=== PATIENT | female | born 1995 | race Caucasian/White ===

== ENCOUNTER 2017-09-15 08:50 | Emergency (ER) | payer OTHER ==
--- NOTE | 2017-09-15 10:44 | RAD ---
HISTORY: Chest pain COMPARISONS: None VIEWS: 1: frontal portable view of the chest at 10:30 AM FINDINGS: LINES AND TUBES: None. CARDIOMEDIASTINAL SILHOUETTE: The cardiomediastinal silhouette is normal for portable technique. PLEURA: There is a small left apical pneumothorax. LUNG PARENCHYMA: The lungs are clear. ABDOMEN: The upper abdomen is clear. There is no subphrenic gas. BONES AND SOFT TISSUES: No bone or soft tissue abnormalities are noted. IMPRESSION: SMALL LEFT APICAL PNEUMOTHORAX. PRELIMINARY FINDINGS WERE DISCUSSED WITH DR. WETZEL AT APPROXIMATELY 10:41 AM ON SEPTEMBER 15, 2017.
[2017-09-15 10:49] LABS: ABS Basophils 0 10^3/ul (0-0.2); ABS Eosinophils 0 10^3/ul (0-0.6); ABS Lymphocytes 1.2 10^3/ul (1.0-4.8); ABS Monocytes 0.4 10^3/ul (0-0.8); ABS Neutrophils 5.8 10^3/ul (1.5-7.7); ABS Nucleated RBC 0 10^3/ul; Eosinophil % 0.3 % (0-6); Hematocrit 41 % (35-47); Hemoglobin 13.7 g/dl (12.0-16.0); Mean Corpuscular HGB Conc 34 g/dl (31-36); Mean Corpuscular Hemoglobin 31 pg (27-31); Mean Corpuscular Volume 93 fL (80-97); Mean Platelet Volume 7 um3 (7.4-10.4); Nucleated Red Blood Cells % 0; Platelet Count 285 10^3/ul (150-450); Red Blood Count 4.36 10^6/ul (4.0-5.4); Red Cell Distribution Width 13 % (10.5-15); White Blood Count 7.4 10^3/ul (3.5-10.8)
[2017-09-15 11:07] LABS: EGFR Non-African American 116.2 (>60)
--- NOTE | 2017-09-15 13:57 | RAD ---
HISTORY: Chest pain COMPARISONS: September 15, 2017 at 10:29 AM VIEWS: 4: Frontal dual-energy and lateral views of the chest. FINDINGS: CARDIOMEDIASTINAL SILHOUETTE: The cardiomediastinal silhouette is normal. DAYRON: The dayron are normal. PLEURA: There is stable small left apical pneumothorax. LUNG PARENCHYMA: The lungs are clear. ABDOMEN: The upper abdomen is clear. There is no subphrenic gas. BONES AND SOFT TISSUES: No bone or soft tissue abnormalities are noted. OTHER: None. IMPRESSION: STABLE LEFT APICAL PNEUMOTHORAX
[2017-09-15 14:44] VITALS: BP 108/63
--- NOTE | 2017-09-15 18:27 | ED ---
Freddie Aggarwal Angela, scribed for Teja Martin MD on 09/15/17 at 0912 . Back Pain - HPI Summary HPI Summary: This pt is a 22 y/o female presenting to [facility] c/o back and chest pain x3 days. Pt reports her pain makes it difficult to breathe. She states this morning she felt like she was about to pass out. Pt describes her chest pain as constant, burning and tight. Pt states her pain is worse with lying on the left side and with moving her arms. She denies fever, chills, cough, palpitations, nausea. Pt denies any PMHx. - History of Current Complaint Chief Complaint: EDBackInjuryPain Stated Complaint: BACK/CHEST PAIN,DIFF BREATHING Time Seen by Provider: 09/15/17 09:03 Hx Obtained From: Patient Onset/Duration: Lasting Days, Still Present Onset/Duration: Started Days Ago, Still Present Timing: Lasting Days Back Pain Location: Is Discrete @ - back and chest Severity Currently: Moderate Pain Intensity: 4 Pain Scale Used: 0-10 Numeric Character: Burning - and tight Aggravating Symptom(s): Movement, Other - lying on left side Alleviating Symptom(s): Nothing Associated Signs And Symptoms: Negative: Fever, Bladder Incontinence, Bowel Incontinence, Other - POS: faint, difficulty breahting. NEG: chills, cough, palpitations, nausea - Allergies/Home Medications Allergies/Adverse Reactions: Allergies Allergy/AdvReac Type Severity Reaction Status Date / Time No Known Allergies Allergy Verified 09/15/17 09:00 Home Medications: Home Medications Norgestimate-Ethinyl Estradiol [Tri-Linyah] 1 tab PO DAILY 09/15/17 [History Confirmed 09/15/17] PMH/Surg Hx/FS Hx/Imm Hx Endocrine/Hematology History: Denies: Hx Diabetes Cardiovascular History: Denies: Hx Hypertension Infectious Disease History: No Infectious Disease History: Denies: Traveled Outside the [place] in Last 30 Days - Family History Known Family History: Negative: Cardiac Disease, Hypertension, Diabetes - Social History Alcohol Use: Occasionally Alcohol Amount: ETOH intoxication this date Substance Use Type: Reports: None Substance Use Comment - Amount & Last Used: pt denies Smoking Status (MU): Never Smoked Tobacco Review of Systems Negative: Fever, Chills Positive: Chest Pain. Negative: Palpitations Negative: Cough Negative: Nausea Musculoskeletal: Other - back pain Neurological: Other - POS: faint All Other Systems Reviewed And Are Negative: Yes Physical Exam - Summary Physical Exam Summary: VITAL SIGNS: Reviewed. GENERAL: Patient is a well-developed and nourished female who is lying comfortable in the stretcher. Patient is not in any acute respiratory distress. HEAD AND FACE: No signs of trauma. No ecchymosis, hematomas or skull depressions. No sinus tenderness. EYES: PERRLA, EOMI x 2, No injected conjunctiva, no nystagmus. EARS: Hearing grossly intact. Ear canals and tympanic membranes are within normal limits. MOUTH: Oropharynx within normal limits. NECK: Supple, trachea is midline, no adenopathy, no JVD, no carotid bruit, no c- spine tenderness, neck with full ROM. CHEST: Symmetric, no tenderness at palpation LUNGS: Clear to auscultation bilaterally. No wheezing or crackles. CVS: Regular rate and rhythm, S1 and S2 present, no murmurs or gallops appreciated. ABDOMEN: Soft, non-tender. No signs of distention. No rebound no guarding, and no masses palpated. Bowel sounds are normal. EXTREMITIES: FROM in all major joints, no edema, no cyanosis or clubbing. Some tenderness in the paraspinal muscles of the upper back. NEURO: Alert and oriented x 3. No acute neurological deficits. Speech is normal and follows commands. SKIN: Dry and warm Triage Information Reviewed: Yes Vital Signs On Initial Exam: Initial Vitals Temp Pulse Resp BP Pulse Ox 98.2 F 90 16 116/71 99 09/15/17 08:56 09/15/17 08:56 09/15/17 08:56 09/15/17 08:56 09/15/17 08:56 Vital Signs Reviewed: Yes Diagnostics - Vital Signs Vital Signs Temp Pulse Resp BP Pulse Ox 09/15/17 08:56 98.2 F 90 16 116/71 99 - Laboratory Lab Results: Lab Results 09/15/17 09/15/17 Range/Units 10:30 10:30 WBC 7.4 (3.5-10.8) 10^3/ul RBC 4.36 (4.0-5.4) 10^6/ul Hgb 13.7 (12.0-16.0) g/dl Hct 41 (35-47) % MCV 93 (80-97) fL MCH 31 (27-31) pg MCHC 34 (31-36) g/dl RDW 13 (10.5-15) % Plt Count 285 (150-450) 10^3/ul MPV 7 L (7.4-10.4) um3 Neut % (Auto) 78.2 (38-83) % Lymph % (Auto) 16.0 L (25-47) % [place] % (Auto) 5.1 (1-9) % Eos % (Auto) 0.3 (0-6) % Baso % (Auto) 0.4 (0-2) % Absolute Neuts (auto) 5.8 (1.5-7.7) 10^3/ul Absolute Lymphs (auto) 1.2 (1.0-4.8) 10^3/ul Absolute Monos (auto) 0.4 (0-0.8) 10^3/ul Absolute Eos (auto) 0 (0-0.6) 10^3/ul Absolute Basos (auto) 0 (0-0.2) 10^3/ul Absolute Nucleated RBC 0 10^3/ul Nucleated RBC % 0 Sodium 135 (133-145) mmol/L Potassium 4.0 (3.5-5.0) mmol/L Chloride 103 (101-111) mmol/L Carbon Dioxide 26 (22-32) mmol/L Anion Gap 6 (2-11) mmol/L BUN 18 (6-24) mg/dL Creatinine 0.65 (0.51-0.95) mg/dL Est GFR ( Amer) 149.4 (>60) Est GFR (Non-Af Amer) 116.2 (>60) BUN/Creatinine Ratio 27.7 H (8-20) Glucose 76 (70-100) mg/dL Calcium 9.4 (8.6-10.3) mg/dL Total Bilirubin 0.50 (0.2-1.0) mg/dL AST 19 (13-39) U/L ALT 13 (7-52) U/L Alkaline Phosphatase 47 (34-104) U/L Total Creatine Kinase 34 (10-223) U/L Troponin I 0.00 (<0.04) ng/mL C-Reactive Protein 3.82 (< 5.00) mg/L Total Protein 6.9 (6.4-8.9) g/dL Albumin 3.8 (3.2-5.2) g/dL Globulin 3.1 (2-4) g/dL Albumin/Globulin Ratio 1.2 (1-3) Beta HCG, Quant < 0.60 mIU/mL Result Diagrams: 09/15/17 10:30 09/15/17 10:30 Lab Statement: Any lab studies that have been ordered have been reviewed, and results considered in the medical decision making process. - Radiology Chest XR Xray Interpretation: Positive (See Comments) - IMPRESSION: Small left apical pneumothorax. Preliminary findings were discussed with Dr. Martin at approximately 10:41 AM on September 15, 2017. Dr. Martin has reviewed this radiology report. Radiology Interpretation Completed By: Radiologist Repeat chest XR Xray Interpretation: No Acute Changes - IMPRESSION: Stable left apical pneumothorax. Dr. Martin has reviewed this radiology report. Radiology Interpretation Completed By: Radiologist - EKG 10:25 Cardiac Rate: NL EKG Rhythm: Sinus Rhythm - at 82 bpm EKG Interpretation: No ST elevation. Normal axis. Re-Evaluation - Re-Evaluation First Eval Re-Evaluation Time: 11:12 Comment: I reviewed the chest XR with the pt and Dr. Nance's recommendations. Back Pain Course/Dx - Course Assessment/Plan: This pt is a 22 y/o female presenting to [facility] c/o back and chest pain x3 days. Pt reports her pain makes it difficult to breathe. She states this morning she felt like she was about to pass out. Pt describes her chest pain as constant, burning and tight. Pt states her pain is worse with lying on the left side and with moving her arms. She denies fever, chills, cough , palpitations, nausea. Pt denies any PMHx. Test results without any significant abnormalities. Chest XR shows that she has small left apical pneumothorax. I discussed the pts case with Dr. Nance, surgeon, who recommends to wait for 4 hours and repeat the chest XR. Second CXR is unchanged from initial XR. Dr. Nance recommends for pt to be discharged home and follow up in his office in 2 days. She is saturating 98% on room air and has no other complaints. Pt is hemodynamically stable, alert and oriented x3. - Diagnoses Differential Diagnosis/HQI/PQRI: Positive: Other - CP, Pneumonia, Flue, ACS Provider Diagnoses: Pneumothorax - Provider Notifications Discussed Care Of Patient With: Indio Nance Time Discussed With Above Provider: 11:09 Instructed by Provider To: Other - I discussed pt care with Dr. Nance, surgeon, who reports to repeat the chest XR in 3-4 hours. Discharge - Discharge Plan Condition: Stable Disposition: HOME Patient Education Materials: Spontaneous Pneumothorax (ED) Referrals: Indio Nance MD [Medical Doctor] - 2 Days (Follow up with Dr. Nance on 09/17/17.) [facility] [Primary Care Provider] - Additional Instructions: Please follow up with Dr. Nance, surgeon, on 09/17/17. RETURN TO THE ED FOR ANY WORSENING SYMPTOMS. The documentation as recorded by the Freddie marcano Angela accurately reflects the service I personally performed and the decisions made by Mario dozier Walter, MD.
== END 2017-09-15 14:58 | disposition home or self-care (01) ==
LOC: ED 08:50
DX: J93.9 Pneumothorax, unspecified (principal); R07.9 Chest pain, unspecified
CPT/HCPCS: 36415; 71045; 71046; 80053; 82550; 84484; 84702; 85025; 86140; 93005; 99282

== ENCOUNTER → 2017-09-27 08:56 | Emergency (ER) | payer OTHER ==
--- NOTE | 2017-09-27 09:43 | RAD ---
Indication: Chest pain, shortness of breath. 2 views of the chest including dual energy PA views demonstrates no mediastinal shift. Heart is of normal size and configuration. Lung phelps are clear. IMPRESSION: No active cardiopulmonary disease is noted.
[2017-09-27 10:07] LABS: EGFR Non-African American 110.3 (>60)
[2017-09-27 10:08] LABS: ABS Basophils 0 10^3/ul (0-0.2); ABS Eosinophils 0.1 10^3/ul (0-0.6); ABS Lymphocytes 1.5 10^3/ul (1.0-4.8); ABS Monocytes 0.4 10^3/ul (0-0.8); ABS Neutrophils 4.4 10^3/ul (1.5-7.7); ABS Nucleated RBC 0 10^3/ul; Eosinophil % 1.4 % (0-6); Hematocrit 43 % (35-47); Hemoglobin 14.2 g/dl (12.0-16.0); Lymphocyte % 23.6 % (25-47); Mean Corpuscular HGB Conc 33 g/dl (31-36); Mean Corpuscular Hemoglobin 31 pg (27-31); Mean Corpuscular Volume 94 fL (80-97); Nucleated Red Blood Cells % 0.1; Red Blood Count 4.62 10^6/ul (4.0-5.4); Red Cell Distribution Width 13 % (10.5-15); White Blood Count 6.4 10^3/ul (3.5-10.8)
[2017-09-27 12:57] VITALS: BP 99/56
--- NOTE | 2017-09-27 19:26 | CONS ---
CC: [facility]; [facility] * EMERGENCY ROOM CONSULTATION REPORT: DATE OF CONSULT: 09/27/17 REFERRING PROVIDER: Dr. Martin, emergency room. REASON FOR CONSULT: Spontaneous left pneumothorax. HISTORY OF PRESENT ILLNESS: Ms. 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 It was associated with some mild shortness of breath. She has a recent history of presenting to the emergency room at [facility] on 09/15/17 with similar symptoms and a chest x-ray showed apical pneumothorax that did not changer fixer 4 to 5 hours' time and she was discharged to home with appropriate followup. She states that she was doing better and was home at her parents near [place], [place], and had an x-ray done at [facility], which she was told was unremarkable. We do not have these records or the images today. She had been doing well after that and presented today with the above symptoms. Here in the emergency room today, she was noted to have stable vital signs with 100% oxygen saturation and no shortness of breath at rest. Chest x-ray was performed once again, which showed a 20% left-sided pneumothorax, slightly larger than the study done here on 09/15/17. Surgical consultation was obtained. PAST MEDICAL HISTORY: Left pneumothorax as per above. This is her first episode. Not had problems prior to her most recent visit. PAST SURGICAL HISTORY: None. MEDICATIONS: Include none. ALLERGIES: She has no known drug allergies. 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 She drinks alcohol on a rare social basis. Does not use tobacco. She is from [place], [place]. REVIEW OF SYSTEMS: Cerebrovascular: No dizziness or visual disturbances. Cardiovascular: No chest pain or coronary artery disease. Pulmonary: She has not had fevers, chills, cough, or nausea. Otherwise as per above. PHYSICAL EXAM: Temperature 97.2, pulse 79, blood pressure 104/95, oxygen saturation is 97% on room air. In general, she is a slender female and appears to be in no apparent distress, quite alert, conversive, and very pleasant. Trachea was midline. There is no crepitus on the anterior, posterior chest wall. Heart has regular rate and rhythm without murmurs, rubs, or gallops. Her lungs are clear to auscultation. There are breath sounds that are equal on both sides. I do not appreciate a significant decrease in breath sounds on the left either anterior or posteriorly. Abdomen was soft, nondistended, no tenderness. Extremities showed no cyanosis or edema. Psychiatric: She is awake, alert, and oriented x3. She has normal judgment and insight. IMPRESSION AND PLAN: Spontaneous left pneumothorax. This apparently has been a process that has been going on for almost 2 weeks and it appears that she has a recurrence of the left pneumothorax by x-ray and clinically. The pneumothorax is relatively small that extends down the left side of the chest wall; however, slightly increased in size from the study done 2 weeks ago. The question here is whether to place the pneumothorax catheter. I will continue to observe with hopeful resolution. It is difficult to determine the duration of the present pneumothorax and it is hard to make a decision without seeing the films from [place], which may have also been very difficult to read a pneumothorax, may have been missed; however, she clinically was feeling better as of this past Wednesday. I discussed her care with Dr. Sullivan, Thoracic Surgery, here. The plan right now is to observe and we are going to follow up with a chest x-ray tomorrow morning with followup with Dr. Sullivan in the office tomorrow morning. If this has increased in size or she is having more symptoms, this will warrant a pneumothorax catheter and/or chest tube insertion. If this causes increasing symptoms in the next 12 to 24 hours, she has been recommended that she present to the emergency room urgently for further evaluation and probable tube placement. [id number]/[facility] #: [id number] MTDD
--- NOTE | 2017-09-29 08:30 | ED ---
Freddie Aggarwal Angela, scribed for Teja Martin MD on 09/27/17 at 0940 . Back Pain - HPI Summary HPI Summary: This pt is a 22 y/o female presenting to [facility] c/o back pain and left sided chest pain. She additionally notes SOB and pain with deep inspirations. Pt had a recent pneumothorax on 09/15/17. Pt followed up 3 days ago with a surgeon at her hometown and was told her pneumothorax had resolved. She notes today she also felt dizziness. Pt denies nausea and vomiting. LMP: last week. - History of Current Complaint Chief Complaint: EDChestWallPain Stated Complaint: SHORT OF BREATH Time Seen by Provider: 09/27/17 09:01 Hx Obtained From: Patient Onset/Duration: Lasting Days, Still Present Onset/Duration: Started Days Ago Timing: Lasting Days Severity Currently: Moderate Pain Intensity: 4 Pain Scale Used: 0-10 Numeric Aggravating Symptom(s): Nothing Alleviating Symptom(s): Nothing Associated Signs And Symptoms: Positive: Other - POS: chest pain, SOB, dizziness. NEG: nausea, vomiting. - Allergies/Home Medications Allergies/Adverse Reactions: Allergies Allergy/AdvReac Type Severity Reaction Status Date / Time No Known Allergies Allergy Verified 09/15/17 09:00 PMH/Surg Hx/FS Hx/Imm Hx Endocrine/Hematology History: Denies: Hx Diabetes Cardiovascular History: Denies: Hx Hypertension Respiratory History: Reports: Other Respiratory Problems/Disorders - pneumothorax Infectious Disease History: No Infectious Disease History: Denies: Traveled Outside the [place] in Last 30 Days - Family History Known Family History: Negative: Cardiac Disease, Hypertension, Diabetes - Social History Alcohol Use: Occasionally Alcohol Amount: ETOH intoxication this date Substance Use Type: Reports: None Substance Use Comment - Amount & Last Used: pt denies Smoking Status (MU): Never Smoked Tobacco Review of Systems Negative: Fever, Chills Positive: Chest Pain Positive: Shortness Of Breath Negative: Vomiting, Nausea Musculoskeletal: Other - back pain Neurological: Other - POS: dizziness All Other Systems Reviewed And Are Negative: Yes Physical Exam - Summary Physical Exam Summary: VITAL SIGNS: Reviewed. GENERAL: Patient is a well-developed and nourished female who is lying comfortable in the stretcher. Patient is not in any acute respiratory distress. HEAD AND FACE: No signs of trauma. No ecchymosis, hematomas or skull depressions. No sinus tenderness. EYES: PERRLA, EOMI x 2, No injected conjunctiva, no nystagmus. EARS: Hearing grossly intact. Ear canals and tympanic membranes are within normal limits. MOUTH: Oropharynx within normal limits. NECK: Supple, trachea is midline, no adenopathy, no JVD, no carotid bruit, no c- spine tenderness, neck with full ROM. CHEST: Symmetric, no tenderness at palpation LUNGS: Clear to auscultation bilaterally. No wheezing or crackles. CVS: Regular rate and rhythm, S1 and S2 present, no murmurs or gallops appreciated. ABDOMEN: Soft, non-tender. No signs of distention. No rebound no guarding, and no masses palpated. Bowel sounds are normal. EXTREMITIES: FROM in all major joints, no edema, no cyanosis or clubbing. NEURO: Alert and oriented x 3. No acute neurological deficits. Speech is normal and follows commands. SKIN: Dry and warm Triage Information Reviewed: Yes Vital Signs On Initial Exam: Initial Vitals Temp Pulse Resp BP Pulse Ox 97.2 F 73 18 119/64 98 09/27/17 08:58 09/27/17 08:58 09/27/17 08:58 09/27/17 08:58 09/27/17 08:58 Vital Signs Reviewed: Yes Diagnostics - Vital Signs Vital Signs Temp Pulse Resp BP Pulse Ox 09/27/17 09:12 87 94 09/27/17 09:11 104/65 100 09/27/17 08:58 97.2 F 73 18 119/64 98 - Laboratory Result Diagrams: 09/27/17 09:16 09/27/17 09:16 Lab Statement: Any lab studies that have been ordered have been reviewed, and results considered in the medical decision making process. - Radiology Chest XR Xray Interpretation: Positive (See Comments) - IMPRESSION: There is approximately 20% pneumothorax of the left lung. Dr. Martin has reviewed this radiology report. Radiology Interpretation Completed By: Radiologist - EKG 09:25 Cardiac Rate: NL EKG Rhythm: Sinus Rhythm - at 71 bpm EKG Interpretation: No ST elevation. Back Pain Course/Dx - Course Assessment/Plan: This pt is a 22 y/o female presenting to [facility] c/o back pain and left sided chest pain. She additionally notes SOB. Pt had a recent pneumothorax on 09/15/17. Pt followed up 3 days ago with a surgeon at her hometown and was told her pneumothorax had resolved. She additionally notes today she felt dizziness. Pt denies nausea and vomiting. LMP: last week. Test results without any significant abnormalities. I discussed the case with Dr. Martinez, surgeon, who came and assessed the pt in the ED. After his assessment , he recommends to discharge the pt home and follow up with Dr. Sullivan at 11:45 at his office tomorrow. Pt is hemodynamically stable, alert and oriented x3. She understands and agrees. - Diagnoses Provider Diagnoses: Spontaneous pneumothorax - Provider Notifications Discussed Care Of Patient With: Jono Martinez Time Discussed With Above Provider: 10:07 Instructed by Provider To: Other - I discussed pt care with Dr. Martinez, surgeon, who will come see the pt in the ED. Discharge - Discharge Plan Condition: Stable Disposition: HOME Patient Education Materials: Spontaneous Pneumothorax (ED) Referrals: Dilan Sullivan MD [Medical Doctor] - (tomorrow, Wednesday (09/28/17), at 11:45 AM) [facility] [Primary Care Provider] - Additional Instructions: Please follow up with Dr. Sullivan, surgeon, tomorrow at 11:45 AM. RETURN TO THE ED FOR ANY WORSENING SYMPTOMS. The documentation as recorded by the Freddie marcano Angela accurately reflects the service I personally performed and the decisions made by me, Teja Martin MD.
== END | disposition home or self-care (01) ==
LOC: ED 08:56
DX: J93.83 Other pneumothorax (principal)
CPT/HCPCS: 36415; 71046; 80053; 82550; 85025; 93005; 99282

== ENCOUNTER → 2017-09-28 13:03 | Day surgery (SDC) | payer OTHER ==
[~2017-09-28 13:03] MED LIST: Ibuprofen TAB* 600 MG ONE; Ibuprofen TAB* 600 MG PO ONE
--- NOTE | 2017-09-28 14:19 | RAD ---
INDICATION: Chest tube placement following spontaneous pneumothorax COMPARISON: Most recent comparison chest x-rays from the same date acquired at 1120 hours TECHNIQUE: Single AP portable view of the chest was obtained on September 28, 2017 at 1350 hours. FINDINGS: Image quality is compromised due to the relative inferiority of a portable chest x-ray. There is been interval placement of an 8-Telugu left upper chest percutaneous chest tube. The pneumothorax seen on the previous chest x-ray has resolved. The heart and lungs are otherwise normal in appearance. IMPRESSION: Interval resolution of left-sided pneumothorax after 8-Telugu chest tube placement.
--- NOTE | 2017-09-29 11:24 | OP ---
CC: [facility] * DATE OF OPERATION: 09/28/17 - SDS DATE OF : 97 SURGEON: Dilan Sullivan MD SEXER: None. ANESTHESIOLOGIST: None. PRE-OP DIAGNOSIS: Left pneumothorax. POST-OP DIAGNOSIS: Left pneumothorax. OPERATIVE PROCEDURE: Placement of left Heimlich valve. DESCRIPTION OF PROCEDURE: The patient was supine on the procedure room. The left anterior chest was prepped with antiseptic, draped in a sterile fashion. Local infiltrative anesthesia was administered. The second interspace was addressed and skinny needle was used to identify air aspirate. Therefore, the pneumothorax catheter was then placed through a small verona in the skin and again air aspiration was carried out. The catheter was advanced without difficulty. A 60 cc syringe was used to aspirate air from the chest cavity until no more was forthcoming. There is approximately 250 mL of air aspirated. Catheter was sutured at the skin, attached to the Heimlich valve, and it was secured with a dressing. Follow up chest x-ray was obtained, it shows complete resolution of the pneumothorax. She tolerated this well. She was discharged with instructions and we will see her back in the office for followup in a couple of days. [id number]/[facility] #: [id number] [facility] HOSPITALPriscila
== END | disposition home or self-care (01) ==
LOC: OR 13:03
PROVIDERS: ATTEND Surgery
DX: J93.11 Primary spontaneous pneumothorax (principal)
CPT/HCPCS: 71045; A9270-GY

== ENCOUNTER 2018-02-06 21:36 | Emergency (ER) | payer OTHER ==
[2018-02-06] MEDS ORDERED: Ketorolac INJ* 30 MG/ML 1 ML VIAL IV PUSH ONE (22:18)
[2018-02-06 23:24] VITALS: BP 120/79
--- NOTE | 2018-02-06 23:28 | ED ---
Patricia Aggarwal Emily, scribed for Tri Donald MD on 02/06/18 at 2200 . Back Pain - HPI Summary HPI Summary: This patient is a 22 year old F presenting to [facility] with a chief complaint of upper back pain that began earlier today. The patient rates the pain 0/10 in severity. Symptoms aggravated by deep breaths. Symptoms alleviated by nothing. Patient denies SOB. Pt reports a history of two left pneumothorax, with the most recent one occurring approximately 3 months ago. - History of Current Complaint Chief Complaint: EDGeneral Stated Complaint: BACK PAIN Time Seen by Provider: 02/06/18 21:45 Hx Obtained From: Patient Onset/Duration: Sudden Onset, Lasting Hours, Still Present Onset/Duration: Started Hours Ago, Atraumatic, Still Present Timing: Constant Severity Initially: Mild Severity Currently: Mild Pain Intensity: 0 Pain Scale Used: 0-10 Numeric Aggravating Symptom(s): Cough, Other - Deep breaths Alleviating Symptom(s): Nothing Associated Signs And Symptoms: Positive: Other - Negative SOB - Allergies/Home Medications Allergies/Adverse Reactions: Allergies Allergy/AdvReac Type Severity Reaction Status Date / Time No Known Allergies Allergy Verified 02/06/18 22:08 PMH/Surg Hx/FS Hx/Imm Hx Previously Healthy: No Endocrine/Hematology History: Denies: Hx Diabetes Cardiovascular History: Denies: Hx Hypertension Respiratory History: Reports: Other Respiratory Problems/Disorders - Hx pneumothorax Opthamlomology History: Denies: Hx Legally Blind EENT History: Denies: Hx Deafness - Surgical History Surgery Procedure, Year, and Place: Denies previous surgery Hx Anesthesia Reactions: No Infectious Disease History: No Infectious Disease History: Denies: Traveled Outside the [place] in Last 30 Days - Family History Known Family History: Negative: Cardiac Disease, Hypertension, Diabetes - Social History Occupation: Student Lives: Dormitory/Roommates Alcohol Use: Occasionally Hx Substance Use: No Substance Use Type: Reports: None Hx Tobacco Use: No Smoking Status (MU): Never Smoked Tobacco Review of Systems Negative: Shortness Of Breath Positive: Other - Positive back pain All Other Systems Reviewed And Are Negative: Yes Physical Exam - Summary Physical Exam Summary: VITAL SIGNS: Reviewed. GENERAL: Patient is a well-developed and nourished female who is lying comfortable in the stretcher. Patient is not in any acute respiratory distress. HEAD AND FACE: No signs of trauma. No ecchymosis, hematomas or skull depressions. No sinus tenderness. EYES: PERRLA, EOMI x 2, No injected conjunctiva, no nystagmus. EARS: Hearing grossly intact. Ear canals and tympanic membranes are within normal limits. MOUTH: Oropharynx within normal limits. NECK: Supple, trachea is midline, no adenopathy, no JVD, no carotid bruit, no c- spine tenderness, neck with full ROM. CHEST: Symmetric, no tenderness at palpation LUNGS: Decreased breath sounds on the left side. No wheezing or crackles. CVS: Regular rate and rhythm, S1 and S2 present, no murmurs or gallops appreciated. ABDOMEN: Soft, non-tender. No signs of distention. No rebound no guarding, and no masses palpated. Bowel sounds are normal. EXTREMITIES: FROM in all major joints, no edema, no cyanosis or clubbing. NEURO: Alert and oriented x 3. No acute neurological deficits. Speech is normal and follows commands. SKIN: Dry and warm Triage Information Reviewed: Yes Vital Signs On Initial Exam: Initial Vitals Temp Pulse Resp BP Pulse Ox 98.1 F 97 16 121/94 100 02/06/18 21:39 02/06/18 21:39 02/06/18 21:39 02/06/18 21:39 02/06/18 21:39 Vital Signs Reviewed: Yes Diagnostics - Vital Signs Vital Signs Temp Pulse Resp BP Pulse Ox 02/06/18 21:39 98.1 F 97 16 121/94 100 - Laboratory Lab Statement: Any lab studies that have been ordered have been reviewed, and results considered in the medical decision making process. - Radiology CXR Radiology Interpretation Completed By: ED Physician - CXR reveals, per ED physician, left pneumothorax 2.7 cm from the rib cage. Back Pain Course/Dx - Course Course Of Treatment: This patient is a 22 year old F presenting to [facility] with a chief complaint of upper back pain that began earlier today. CXR reveals, per ED physician, left pneumothorax 2.7 cm from the rib cage. In the ED course, the patient recieved Toradol. Consult with Dr. Sullivan (surgery) at 1760. Dr. Sullivan recommends that the patient be discharged and return tomorrow for a repeat CXR. Dr. Sullivan gave the patient a prescription for the CXR and will follow up with the patient. The patient will be discharged with repeat CXR tomorrow. The patient is agreeable with this plan. - Diagnoses Provider Diagnoses: Pneumothorax, left - Provider Notifications Discussed Care Of Patient With: Dilan Sullivan Time Discussed With Above Provider: 22:51 Instructed by Provider To: Other - Consult with Dr. Sullivan (surgery) at 2251. Dr. Sullivan recommends that the patient be discharged and return tomorrow for a repeat CXR. Discharge - Sign-Out/Discharge Documenting (check all that apply): Discharge/Admit/Transfer - Discharge home - Discharge Plan Condition: Stable Disposition: HOME Patient Education Materials: Spontaneous Pneumothorax (ED) Referrals: [facility] [Outside] - 2 Days Additional Instructions: RETURN TO THE EMERGENCY DEPARTMENT FOR NEW OR WORSENING SYMPTOMS - Billing Disposition and Condition Condition: STABLE Disposition: Home The documentation as recorded by the Patricia marcano Emily accurately reflects the service I personally performed and the decisions made by , Tri Donald MD.
--- NOTE | 2018-02-07 01:02 | CONS ---
CONSULTATION REPORT: DATE OF CONSULT: 02/06/18 - EMERGENCY DEPT CHIEF COMPLAINT: Left chest pressure and pain. HISTORY OF PRESENT ILLNESS: The patient is a 22-year-old female, known to me from previous left pneumothorax and Heimlich valve, who now presents with about 12-hour history of pain in the left chest and pressure and a little bit of dyspnea. She presents to the emergency room as she was just sitting around, studying at the time when this happened. PHYSICAL EXAM: On examination, she does not appear in acute distress. Skin is warm and well perfused. Breathing is easy and unlabored. Vital signs show normal heart rate, respirations 16 and unlabored, O2 saturation between 96% and 100% on room air. There is no obvious decrease in breath sounds to auscultation. There is no crepitus. DIAGNOSTIC STUDIES/LAB DATA: Review of her chest x-ray reveals a pneumothorax with about 23 mm of separation at the top. IMPRESSION AND PLAN: A 22-year-old female with recurrent left pneumothorax and mild symptoms. I have recommended a pneumothorax catheter with a Heimlich valve to alleviate her pneumothorax. She does not want to do this and would rather try to ride it out without a tube. She understands that it may take quite a bit of time for this to resolve and she may get a little bit of fluid in there in the interim. Furthermore, she understands that given this is a recurrent pneumothorax, she does need to strongly consider having a pleurodesis performed. We have gone over all these issues, she is agreeable to pleurodesis , but she has finals later this week and does not want to do before then. She is agreeable to coming back tomorrow morning for a repeat chest x-ray and we can then discuss it further based on the results of that study. [id number]/[facility] #: [id number] KELVIN
--- NOTE | 2018-02-07 07:35 | RAD ---
INDICATION: Chest pain COMPARISON: October 06, 2017: TECHNIQUE: An AP portable view obtained at 2216 hours is submitted. FINDINGS: Bones/Soft Tissues: There are no acute bony findings. Cardiomediastinal: The cardiomediastinal silhouette is normal. Lungs: There are no infiltrates. There is a left-sided pneumothorax under minor tension. There is 2.7 cm of visceral-parietal surface separation along the lateral chest wall. Pleura: There are no pleural effusions. Other: None IMPRESSION: Moderate-sized left-sided pneumothorax under mild tension. Chest x-ray findings discussed with emergency physician at 0730 hours on February 07, 2018
== END 2018-02-06 23:23 | disposition home or self-care (01) ==
LOC: ED 21:36
DX: J93.9 Pneumothorax, unspecified (principal)
CPT/HCPCS: 71045; 96374; 99283; J1885

== ENCOUNTER 2018-02-10 12:14 | Inpatient (IN) | payer OTHER ==
[~2018-02-10 12:14] MED LIST changes: +Atracurium* 10 MG/ML 10 ML VIAL ONE; +Buffered Lidocaine 0.9% SYRIN* 5 ML/SYR SYRINGE INTRADERM ONE; +Bupivacaine 0.5% SDV PF* 30ML VIAL ONE; +Dexamethasone TAB* 4 MG ONE; +Dexamethasone TAB* 4 MG PO ONE; +DiMENhydriNATE IV* 50 MG/ML VIAL IV PUSH PRN; +Famotidine IV* 10 MG/ML 2 ML (20 mg) IV ONE; +Famotidine IV* 10 MG/ML 2 ML (20 mg) ONE; +Gabapentin CAP(*) 300 MG ONE; +Gabapentin CAP(*) 300 MG PO ONE; -Ibuprofen TAB* 600 MG ONE; -Ibuprofen TAB* 600 MG PO ONE; +KETAMINE HCL* 50 MG/ML 10 ML VIAL ONE; +Midazolam* 1 MG/ML 5 ML VIAL (5 MG) ONE; +Morphine INJ* 2 MG/ML 1 ML CARPUJECT IV PRN; +Naloxone* 0.4 MG/ML 1 ML VIAL IV PRN; +Ondansetron ODT TAB* 4 MG ONE; +Ondansetron TAB* 4 MG PO ONE; +PROCHLORPERAZINE INJ 5 MG/ML 2 ML VIAL IV PRN; +Scopolamine 1.5 mg* PATCH TRANSDERM PRN; +fentaNYL* 50 MCG/ML 2 ML VIAL (100 MCG VIAL) IV PRN; +fentaNYL* 50 MCG/ML 5 ML VIAL (250 MCG VIAL) ONE; +oxyCODONE/Acetamin 5/325 MG* TAB PO PRN
[2018-02-10] MEDS ORDERED: Ketorolac INJ* 30 MG/ML 1 ML VIAL ONE (12:16)
[2018-02-10] MEDS ORDERED: ceFAZolin 2 GM PREMIX (*) 2 GM/50 ML BAG IVPB ONE (12:46)
[2018-02-10] MEDS ORDERED: Benzocaine/Butamben/Tetracain (CETACAINE - SINGLE USE) 5 gm TOPICAL ONE (12:51)
[2018-02-10] MEDS ORDERED: HYDROmorphone INJ* 0.5 MG/0.5 ML SYRINGE IV PRN (13:36)
[2018-02-10] MEDS ORDERED: Acetaminophen TAB* 325 MG PO PRN (13:36)
[2018-02-10] MEDS ORDERED: Ondansetron INJ* 2 MG/ML VIAL IV PRN (13:36)
[2018-02-10] MEDS ORDERED: PROCHLORPERAZINE INJ 5 MG/ML 2 ML VIAL ONE (13:51)
[2018-02-10] MEDS ORDERED: Lidocaine 2% PF * 5 ML VIAL ONE (13:51)
[2018-02-10] MEDS ORDERED: Glycopyrrolate IV* 0.2 MG/ML 1 ML VIAL ONE ×2 (13:51→13:57)
[2018-02-10] MEDS ORDERED: Propofol* 10 MG/ML 20 ML BTL IV PUSH ONE (13:51)
--- NOTE | 2018-02-10 16:08 | RAD ---
INDICATION: Left-sided thoracotomy with lobe resection COMPARISON: February 07, 2018 TECHNIQUE: An AP portable view obtained at 1455 hours is submitted. FINDINGS: Bones/Soft Tissues: There are no acute bony findings. There is left-sided thoracotomy with placement of a chest tube in the left lung apex Cardiomediastinal: The cardiomediastinal silhouette is normal. Lungs: Minor airspace disease left chest. No significant pneumothorax. Pleura: There are no pleural effusions. Other: None IMPRESSION: LEFT-SIDED THORACOTOMY WITH CHEST TUBE PLACEMENT. NO SIGNIFICANT PNEUMOTHORAX.
[2018-02-10] MEDS: Ibuprofen TAB* 600 MG PO SCH ×2 (16:58→22:12)
[2018-02-10] MEDS: Docusate CAP* 100 MG PO SCH (22:12)
[2018-02-10] MEDS: oxyCODONE/Acetamin 5/325 MG* TAB PO PRN (23:27)
--- NOTE | 2018-02-11 01:36 | OP ---
DATE OF OPERATION: 02/10/18 - ROOM #334 DATE OF : 89 SURGEON: Dilan Sullivan MD PROCUREMENT OFFICER: Madelyn Gautam NP ANESTHESIOLOGIST: Dr. Gallagher. ANESTHESIA: General anesthetic, local infiltration and intercostal nerve block. PRE-OP DIAGNOSIS: Recurrent spontaneous left pneumothorax. POST-OP DIAGNOSIS: Recurrent spontaneous left pneumothorax. OPERATIVE PROCEDURE: Left video thoracoscopy with bleb resection and pleurodesis. DESCRIPTION OF PROCEDURE: The patient was supine on the operating room table. After adequate general anesthesia, double lumen intubation was carried out using fiberoptic bronchoscopy guidance. She was then turned in the lateral decubitus position with the left chest upward and appropriately padded and positioned and secured to the table. Axillary roll was utilized. The left chest was prepped with antiseptic, draped in a sterile fashion. Local infiltrative anesthesia was administered and approximately 8th interspace was entered and a 5 mm cannula was placed. Postero-superior to this, a 12-mm site was created and anterior to that another 5 mm site, there was a moderate-sized apical bleb readily identified. This was stapled off using a purple load EndoGIA stapler with reinforcing staple line. Mechanical pleurodesis was carried out using a piece of Marlex and after roughing of the pleura, this was removed. A 28-Tajik chest tube was placed into the pleural space up towards the apex, sutured at the skin with 0 Prolene. The other sites were closed with 5-0 Vicryl followed by Steri-Strips. Gauze dressings were utilized around the chest tube. Note that an intercostal nerve block had been carried under direct vision. She was awakened and brought to the recovery in good condition. No complications. Drain is 28-Tajik chest tube. Sponge and instrument counts were correct. Estimated blood loss is 50 mL. [id number]/[facility] #: [id number] [facility] MED[facility] CENTERPriscila
[2018-02-11] MEDS: oxyCODONE/Acetamin 5/325 MG* TAB PO PRN ×4 (05:46→20:42)
[2018-02-11] MEDS: Ibuprofen TAB* 600 MG PO SCH ×3 (05:47→22:08)
[2018-02-11] MEDS: Docusate CAP* 100 MG PO SCH ×2 (07:45→20:42)
--- NOTE | 2018-02-11 08:21 | PN ---
Progress Note - Progress Note Date of Service: 02/11/18 Note: POD#1 s/p left VATS Afeb, VS OK Simone po's, no N/V Voiding CT level 160ml, no air leak Feels well, mild discomfort, breathing well Lungs clear bilat. Await decreased drainage Water seal Heplock
[2018-02-11] MEDS ORDERED: NORGESTIMATE ETH ESTRADIOL PO SCH ×2 (09:00→21:00)
--- NOTE | 2018-02-11 16:20 | PN ---
Progress Note - Progress Note Date of Service: 02/11/18 SOAP: Subjective: Janis is post op day 1 from a left VATS with pleurodesis. She is doing well with a current 5/10 pain level. Her last dose of Dilaudid was 4 hours ago. The dilaudid brings her pain level to a 2/10. She denies any fevers, chills, or difficulty breathing. She has not passed flatus since the surgery. Objective: Vital Signs - 8 hr 02/11/18 02/11/18 02/11/18 10:17 11:30 13:36 Temperature 98.1 F Pulse Rate 85 Respiratory 18 14 18 Rate Blood Pressure 97/55 (mmHg) O2 Sat by Pulse 100 Oximetry 02/11/18 15:38 Temperature Pulse Rate Respiratory 18 Rate Blood Pressure (mmHg) O2 Sat by Pulse Oximetry Intake & Output 02/11/18 02/11/18 02/11/18 06:59 14:59 22:59 Intake Total 1581 440 Output Total 20 0 Balance 1561 440 Intake: IV Fluids 931 LR 931 Oral 650 440 Output: Chest Tube #1 20 Urine 0 Other: Estimated Void Medium # Voids 6 PE: General: The patient appears well and in no distress. Cardio: regular rate and rhythm with no gallops, rubs, or murmurs. Respiratory: lungs are clear to auscultation bilaterally. No excessive respiratory effort and no pain when breathing. Chest tube level is 190 mL. GI: bowel sounds are heard every 6-7seconds Assessment: Janis is status post left VATS and is doing well for post op day 1 with only mild/moderate pain and discomfort. Plan: Continue dilaudid PRN for pain. When pain is mild Acetaminophen can be used to relieve pain.
[2018-02-12] MEDS: Ibuprofen TAB* 600 MG PO SCH ×2 (06:12→13:16)
[2018-02-12] MEDS: oxyCODONE/Acetamin 5/325 MG* TAB PO PRN (07:20)
[2018-02-12] MEDS: Docusate CAP* 100 MG PO SCH (07:20)
--- NOTE | 2018-02-12 11:02 | DS ---
CC: Dilan Sullivan MD DISCHARGE SUMMARY: DATE OF ADMISSION: 02/10/18 DATE OF DISCHARGE: 02/12/18 PRINCIPAL ADMITTING DIAGNOSIS: Left pneumothorax. OPERATIONS ON THIS ADMISSION: Left videothoracoscopy with bleb resection and pleurodesis. COMPLICATIONS: None. HOSPITAL COURSE: The patient is a 22-year-old female with a spontaneous left pneumothorax, came to [facility], was taken to the operating room on 02/10/18, where she underwent left videothoracoscopy with bleb resection and pleurodesis. She was maintained with a chest tube and was taken off suction a fter the first day. She had good pain control, good ambulation, good appetite. She was urinating wel l. Moving her bowels. Pain control is good. The chest tub was removed on the morning of 02/12/18 an d the drainage was decreased nicely. She tolerated this well, was discharged home with instructions, she will follow up in the office in about a week. [id number]/[facility] #: [id number]
[2018-02-12 11:42] VITALS: BP 100/54
[2018-02-13] MEDS ORDERED: Scopolamine PATCH Remove* 1 NOTE MISC PATCH OFF ONE (05:50)
== END 2018-02-12 14:40 | disposition home or self-care (01) | DRG 165 ==
LOC: OR 12:14 → SSU 17:39
PROVIDERS: ADMIT Surgery; ATTEND Surgery
PROC: 0B5P4ZZ Destruction of Left Pleura, Percutaneous Endoscopic Approach (ICD-10-PCS; 2018-02-10)
PROC: 0W9B40Z Drainage of Left Pleural Cavity with Drainage Device, Percutaneous Endoscopic Approach (ICD-10-PCS; 2018-02-10)
PROC: 0BBL4ZZ Excision of Left Lung, Percutaneous Endoscopic Approach (ICD-10-PCS; 2018-02-10)
PROC: 0WPBX0Z Removal of Drainage Device from Left Pleural Cavity, External Approach (ICD-10-PCS; principal; 2018-02-12)
DX: J93.11 Primary spontaneous pneumothorax (principal); Z80.3 Family history of malignant neoplasm of breast; Z82.3 Family history of stroke
CPT/HCPCS: 71045; 81025; 88307; A9270-GY; C1781; J0690; J0780; J1885; J2250; J2405; J2704; J3010; J8540